=== PATIENT | female | born 1990 | race Caucasian/White ===

== ENCOUNTER → 2016-10-14 | Outpatient (CLI) | payer MEDICAID ==
[2016-10-15 10:32] LABS: APPEARANCE HAZY (CLEAR); BILIRUBIN NEGATIVE (NEGATIVE); COLOR YELLOW (YELLOW); GLUCOSE NEGATIVE (NEGATIVE); KETONE NEGATIVE (NEGATIVE); LEUKOCYTE ESTERASE NEGATIVE (NEGATIVE); NITRITE NEGATIVE (NEGATIVE); PROTEIN NEGATIVE (NEGATIVE); UROBILINOGEN NORMAL (NORMAL)
== END ==
LOC: D.LD 23:07 → D.LDO 23:07
PROVIDERS: Obstetrics & Gynecology
DX: Z34.83 Encounter for supervision of other normal pregnancy, third trimester (principal); Z3A.38 38 weeks gestation of pregnancy

== ENCOUNTER 2016-10-17 19:32 | Outpatient (CLI) | payer MEDICAID ==
[2016-10-18] MEDS ORDERED: PRENATAL COMPLE1 TAB PO (04:49)
[2016-10-18] MEDS ORDERED: ZOVIRAX400 MG PO (04:49)
[2016-10-18 04:50] VITALS: BMI 27.5
== END 2016-10-17 21:31 | disposition home or self-care (01) ==
LOC: D.LDO 19:32
DX: Z34.83 Encounter for supervision of other normal pregnancy, third trimester (principal); Z3A.38 38 weeks gestation of pregnancy

== ENCOUNTER 2016-10-18 04:19 | Inpatient (IN) | payer MEDICAID ==
[~2016-10-18] VITALS: Ht 167.6 cm; Wt 77.1 kg
[2016-10-18 04:33] LABS: HEMATOCRIT 38.9 % (36.0-48.0); HEMOGLOBIN 12.9 g/dL (12-16); MCH 29.5 pg (26.0-34.0); MCHC 33.2 g/dL (31.0-37.0); MEAN PLATELET VOLUME 13.1 fL (7.4-10.4); RBC 4.37 10x6/uL (4.00-5.40); WBC 13.6 10x3/uL (4.8-10.8)
[2016-10-18] MEDS ORDERED: ZOVIRAX400 MG PO (04:49)
[2016-10-18] MEDS ORDERED: PRENATAL COMPLE1 TAB PO (04:49)
[2016-10-18 04:50] VITALS: BP 145/96; Ht 167.6 cm; Wt 77.1 kg
[2016-10-18 16:04] VITALS: BP 121/73
[2016-10-18 19:10] VITALS: BP 119/74
[2016-10-19 07:15] VITALS: BP 118/78
[2016-10-19 07:37] LABS: HEMATOCRIT 38.5 % (36.0-48.0); HEMOGLOBIN 12.5 g/dL (12-16); MCH 29.5 pg (26.0-34.0); MCHC 32.5 g/dL (31.0-37.0); MCV 90.8 fL (80.0-100.0); MEAN PLATELET VOLUME 12.9 fL (7.4-10.4); PLATELET COUNT 97 10x3/uL (130-400); RBC 4.24 10x6/uL (4.00-5.40); RDW 13.6 % (11.5-14.5); WBC 12.4 10x3/uL (4.8-10.8)
[2016-10-19 08:26] LABS: PLATELET ESTIMATE DECREASED
--- NOTE | 2016-10-19 10:46 | OP ---
PATIENT NAME: ORI SUÁREZ MEDICAL RECORD: [id number] LOCATION:[id number] ADMISSION DATE:10/18/16 SURGEON: LISA MARTINEZ MD DATE OF OPERATION: 10/18/2016 Delivery Note Spontaneous vaginal delivery of female infant weighing 6 pounds 7 ounces, 9/9 Apgars, epidural anesthesia. No episiotomy, no laceration. Spontaneous delivery of intact-appearing placenta. ESTIMATED BLOOD LOSS: 400 cc. COMPLICATIONS OF DELIVERY: None. TRANSINT:[id number] Voice Confirmation ID: [id number] DOCUMENT ID: [id number] LISA MARTINEZ MD at 1046 CC: [id number] DICTATION DATE: 10/18/16 0647 WEBSITE OPTIMIZATION STRATEGIST: 10/18/16 1308 ADM IN [place] [id number] [place] [address]
[2016-10-22 03:09] LABS: RAPID PLASMA REAGIN Non Reactive (Non Reactive)
== END 2016-10-19 13:00 | disposition home or self-care (01) | DRG 775 ==
LOC: D.LD 04:19
PROVIDERS: ADMIT Obstetrics & Gynecology
PROC: 10E0XZZ Delivery of Products of Conception, External Approach (ICD-10-PCS; principal; 2016-10-18)
DX: O99.344 Other mental disorders complicating childbirth (principal); F41.8 Other specified anxiety disorders; O99.334 Smoking (tobacco) complicating childbirth; Z3A.38 38 weeks gestation of pregnancy; Z37.0 Single live birth

== ENCOUNTER 2017-06-28 01:25 | Emergency (ER) | payer MEDICAID ==
[2016-10-18 04:50] VITALS: BMI 27.5
[~2017-06-28 01:25] MED LIST: PRENATAL COMPLE1 TAB PO; ZOVIRAX400 MG PO
[2017-06-28 01:49] LABS: BASOPHILS 1.6 % (0-2); EOSINOPHILS 6.7 % (0-7); HEMATOCRIT 43.8 % (36.0-48.0); HEMOGLOBIN 14.7 g/dL (12-16); IMMATURE GRANULOCYTES 0.1 % (0-5); LYMPHOCYTES 38.1 % (15-50); MCH 29.1 pg (26.0-34.0); MCHC 33.6 g/dL (31.0-37.0); MCV 86.6 fL (80.0-100.0); MEAN PLATELET VOLUME 12.4 fL (7.4-10.4); MONOCYTES 6.3 % (2-11); NEUTROPHILS 47.2 % (40-80); RBC 5.06 10x6/uL (4.00-5.40); RDW 14.1 % (11.5-14.5); WBC 8.9 10x3/uL (4.8-10.8)
[2017-06-28 01:51] LABS: PLATELET COUNT 186 10x3/uL (130-400)
[2017-06-28 01:58] LABS: APPEARANCE CLEAR (CLEAR); BILIRUBIN NEGATIVE (NEGATIVE); COLOR YELLOW (YELLOW); GLUCOSE NEGATIVE (NEGATIVE); KETONE NEGATIVE (NEGATIVE); NITRITE NEGATIVE (NEGATIVE); PROTEIN NEGATIVE (NEGATIVE); SPECIFIC GRAVITY 1.005 (1.005-1.020); UROBILINOGEN NORMAL (NORMAL)
[2017-06-28 01:59] LABS: BACTERIA NONE SEEN /hpf (NONE SEEN); EPITHELIAL CELLS RARE /hpf (0-5); WHITE CELLS - URINE 0-5 /hpf (0-5)
[2017-06-28 02:00] LABS: HCG SERUM NEGATIVE (NEGATIVE)
== END 2017-06-28 02:52 | disposition home or self-care (01) ==
LOC: D.ER 01:25
PROVIDERS: Emergency Medicine
DX: N93.9 Abnormal uterine and vaginal bleeding, unspecified (principal); R10.2 Pelvic and perineal pain; F17.200 Nicotine dependence, unspecified, uncomplicated

== ENCOUNTER 2018-06-30 05:28 | Day surgery (SDC) | payer MEDICAID ==
[2018-06-29 12:47] LABS: BASOPHILS 0.4 % (0-2); EOSINOPHILS 7.1 % (0-7); HEMATOCRIT 44.4 % (36.0-48.0); HEMOGLOBIN 14.8 g/dL (12-16); IMMATURE GRANULOCYTES 0.2 % (0-5); LYMPHOCYTES 21.2 % (15-50); MCH 29.5 pg (26.0-34.0); MCHC 33.3 g/dL (31.0-37.0); MCV 88.4 fL (80.0-100.0); MEAN PLATELET VOLUME 11.9 fL (7.4-10.4); MONOCYTES 4.1 % (2-11); PLATELET COUNT 171 10x3/uL (130-400); RBC 5.02 10x6/uL (4.00-5.40); RDW 14.9 % (11.5-14.5)
[2018-06-29 12:56] LABS: CALC OSMOLALITY 277 mosm/kg (275-300); CARBON DIOXIDE 25.1 mmol/L (21.0-32.0); CHLORIDE - SERUM 105 mmol/L (98-107); CREATININE - SERUM 0.9 mg/dL (0.6-1.3); GLUCOSE 88 mg/dL (74-106); POTASSIUM - SERUM 3.9 mmol/L (3.5-5.1); SODIUM 140 mmol/L (136-145); UREA NITROGEN 12 mg/dL (7-18); eGFR NON AFRICAN AMERICAN 79 mL/min (90-120)
[~2018-06-30] VITALS: Ht 167.6 cm; Wt 75.3 kg
[~2018-06-30 05:28] MED LIST changes: +CBD GUMMY PO; +LO LOESTRIN FE
[2018-06-30 05:58] VITALS: BP 137/90; Ht 167.6 cm; Wt 75.3 kg
[2018-06-30] MEDS ORDERED: GUMMY MULTIVITAMIN (05:58)
[2018-06-30 06:06] LABS: HCG URINE NEGATIVE (NEGATIVE)
--- NOTE | 2018-06-30 08:55 | NUR ---
OPA IN AIRWAY ON ADMIT
--- NOTE | 2018-06-30 09:05 | NUR ---
REC'D FROM RR. FRIEND/FAMILY AT BEDSIDE. FL TRAY AND LEMON/COLD [place] SODA BROUGHT TO PT. DRESSINGS CDI TO ABD.
--- NOTE | 2018-06-30 09:35 | NUR ---
TOLERATING DIET. NO VOID AT THIS TIME.
--- NOTE | 2018-06-30 10:05 | NUR ---
TOLERTED DIET. DR POZO IN WITH PATIENT. HAD MEDICATIONS ORDERED BY DR POZO HOWEVER PT DENIES NAUSEA AND PAIN THEREFORE DR POZO ORDERED TO HOLD THE MEEDS. MEDS RETURNED TO THE XIS. AMBULATED TO BATHROOM AND VOIDED WITHOUT DIFFICULTY.
--- NOTE | 2018-06-30 10:15 | NUR ---
IV DC'D WITH CATHETER INTACT. WRITTEN AND VERBAL DC INST. GIVEN TO PT ALONG WITH RX. VERBALIZED UNDERSTANDING.
--- NOTE | 2018-06-30 10:20 | NUR ---
DC'D HOME WITH FAMILY/FRIEND VIA PRIVATE VEHICLE. TAKEN TO VEHICLE VIA WC. STABLE AT TIME OF DC.
== END 2018-06-30 10:20 | disposition home or self-care (01) ==
LOC: D.OPS 05:28 → D.PAN 07:30 → D.OPS 07:30
PROVIDERS: Obstetrics & Gynecology
DX: Z30.2 Encounter for sterilization (principal); Z30.09 Encounter for other general counseling and advice on contraception